=== PATIENT | male | born 1995 | race Caucasian/White ===

== ENCOUNTER 2023-02-19 20:20 | Emergency (ER) | payer OTHER, SELFPAY ==
[2023-02-19 20:28] VITALS: BP 180/102; PULSE 102; RESP 19; TEMP 36.5; O2SAT 100
== END 2023-02-19 21:32 | disposition left against medical advice (07) ==
LOC: ANHED 21:52
PROVIDERS: PCP Family Medicine
DX: R68.89 Other general symptoms and signs (principal)
CPT/HCPCS: 99199